=== PATIENT | female | born 2005 | race Hispanic/Latino ===

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

== ENCOUNTER 2024-07-19 13:57 | Emergency (ER) | payer OTHER, SELFPAY ==
[2024-07-19 14:51] VITALS: BP 92/62; PULSE 105; RESP 16; TEMP 36.4; O2SAT 97
--- NOTE | 2024-07-19 17:26 | ED_ITS ---
HPI - General Adult General Chief complaint: Unspecified <Becca ValdezEthan Lainez APRN - Last Filed: 07/19/24 17:28> Stated complaint: bright red blood in stool x 2 days <Beccajannie Lainez APRN - Last Filed: 07/19/24 17:28> Time Seen by Provider: 07/19/24 16:30 <Beccajannie Lainez APRN - Last Filed: 07/19/24 17:28> Focused HPI: Patient is a 19-year-old female who presents to the ER with concerns of blood in her urine. She reports the bleeding started approximately 2-3 days ago. Patient reports she just started her menstrual period today. She denies any abdominal pain, and fevers, back pain, or other signs/symptoms of illness or infection. Patient denies any medical history relevant this ER visit. GENERAL: Well-appearing, well-nourished, and in no acute distress. HEAD: Normocephalic, atraumatic. CHEST: Clear to auscultation. ?No respiratory distress. HEART: Regular rate and rhythm.? NEURO: ?Alert and oriented x3. Patient screened in triage and initial orders placed.? ?Additional care and disposition to be based upon?diagnostic testing and treatment. <Beccajannie Lainez APRN - Last Filed: 07/19/24 17:28> Focused HPI: Patient is a 19-year-old female who presents to the ER with concerns of blood in her urine. She reports the bleeding started approximately 2-3 days ago. Patient reports she just started her menstrual period today. She denies any abdominal pain, and fevers, back pain, or other signs/symptoms of illness or infection. Patient denies any medical history relevant this ER visit. GENERAL: Well-appearing, well-nourished, and in no acute distress. HEAD: Normocephalic, atraumatic. CHEST: Clear to auscultation. ?No respiratory distress. HEART: Regular rate and rhythm.? NEURO: ?Alert and oriented x3. Patient screened in triage and initial orders placed.? ?Additional care and disposition to be based upon?diagnostic testing and treatment. <Marah Gallagher PA-C - Last Filed: 07/19/24 19:53> Source: patient <Marah Gallagher PA-C - Last Filed: 07/19/24 19:53> Mode of arrival: ambulatory <Marah Gallagher PA-C - Last Filed: 07/19/24 19:53> Limitations: no limitations <Marah Gallagher PA-C - Last Filed: 07/19/24 19:53> History of Present Illness HPI narrative: Agree with above HPI. States bleeding may be coming from her rectum. Reports bright red blood with wiping and coming out after the bowel movement. Denies blood mixed in with the stool. States stool has been hard. Does have history of hemorrhoids. Denies pain with bowel movements. Denies abdominal pain, dizziness, lightheadedness. <Marah Gallagher PA-C - Last Filed: 07/19/24 19:53> Related Data Home medications: Home Medications ?Medication ?Instructions ?Recorded ?Confirmed ?Last Taken ?Type sertraline 25 mg tablet 25 mg PO DAILY 12/10/21 03/21/23 03/20/23 History <Becca Lainez APRN - Last Filed: 07/19/24 17:28> Allergies/adverse reactions: Allergies Allergy/AdvReac Type Severity Reaction Status Date / Time No Known Allergies Allergy Verified 03/21/23 12:03 <Becca Lainez APRN - Last Filed: 07/19/24 17:28> Review of Systems 2 Review of Systems: All systems reviewed & are unremarkable except as noted in HPI. <Marah Gallagher PA-C - Last Filed: 07/19/24 19:53> All systems reviewed & are unremarkable except as noted in HPI and below < Marah Gallagher PA-C - Last Filed: 07/19/24 19:53> PMFSH Past Medical History Medical History: Medical History Dysphagia Decreased appetite Underweight Chronic nausea Hematochezia BINU (iron deficiency anemia) Anemia <Becca Lainez APRN - Last Filed: 07/19/24 17:28> Surgical History Surgical History: Surgical History No pertinent past surgical history <Becca Lainez APRN - Last Filed: 07/19/24 17:28> Social History Social History: Social History Smoking status: Never smoker Alcohol intake: current Substance use: never Substance use type: does not use Living arrangements: with family Gender identity (if verbalized by the patient): Female Spiritual care concerns: No <Becca Lainez APRN - Last Filed: 07/19/24 17:28> Exam 2 Narrative: GENERAL: Well appearing, thin with BMI of 17.2, non-toxic, in no acute distress. HEAD: Normocephalic, atraumatic. RESPIRATORY: Airway patent, respirations nonlabored. Clear to auscultation bilaterally, no rales, rhonchi, wheezing. CARDIOVASCULAR: Regular rate and rhythm without murmurs, rubs, or gallops. ABDOMINAL: Soft, no tenderness throughout abdomen, nondistended. Normoactive BS. MUSCULOSKELETAL: Moves all extremities. No gross deformities. SKIN: Warm, dry, normal color. NEURO: A&O X3. Speech clear. PSYCHIATRIC: Appropriate mood and affect. Normal interaction. <Marah Gallagher PA-C - Last Filed: 07/19/24 19:53> Course Vital Signs Vital signs: Vital Signs Temperature 97.6 F 07/19/24 14:51 Pulse Rate 105 H 07/19/24 14:51 Respiratory Rate 16 07/19/24 14:51 Blood Pressure 92/62 L 07/19/24 14:51 Pulse Oximetry 97 07/19/24 14:51 Temperature 97.5 F L 07/19/24 18:56 Pulse Rate 87 07/19/24 18:56 Respiratory Rate 20 07/19/24 18:56 Blood Pressure 100/65 07/19/24 18:56 Pulse Oximetry 99 07/19/24 18:56 <Becca Lainez APRN - Last Filed: 07/19/24 17:28> Vital Signs Temperature 97.6 F 07/19/24 14:51 Pulse Rate 105 H 07/19/24 14:51 Respiratory Rate 16 07/19/24 14:51 Blood Pressure 92/62 L 07/19/24 14:51 Pulse Oximetry 97 07/19/24 14:51 Temperature 97.5 F L 07/19/24 18:56 Pulse Rate 87 07/19/24 18:56 Respiratory Rate 20 07/19/24 18:56 Blood Pressure 100/65 07/19/24 18:56 Pulse Oximetry 99 07/19/24 18:56 <Marah Gallagher PA-C - Last Filed: 07/19/24 19:53> Medical Decision Making MDM Narrative Medical decision making narrative: Patient presented to ED with possible rectal bleeding. Does note that she is currently on her menstrual cycle. Was slightly tachycardic upon initial arrival to the ED, this was resolved by the time of my evaluation. Otherwise in no acute distress. Denying any pain associated bowel movements or abdominal pain. No tenderness on exam. Cbc without leukocytosis. H and H is stable at 11.5. No recent records to compare to. No evidence of hemodynamic instability. Remainder laboratory studies are otherwise unremarkable. is negative. UA with trace amount of blood. No signs of infection. Patient is currently on her menstrual cycle. Bleeding seems most consistent with internal hemorrhoids. Denies any pain. Reports blood occurs after bowel movement and with wiping and is not mixed in with the stool. Was recently constipated prior to when the bleeding began. Does note that stools have been hard and firm. She does note history of hemorrhoids. Offered to perform rectal exam, however patient politely declined. I also discussed obtaining CT imaging of abdomen, however patient declined. She is not having any focal tenderness on exam. Discussed management of constipation, stool softeners, hemorrhoid management. Will refer to GI for further evaluation. Patient is in agreement this plan. Feels she is otherwise safe for discharge home. Discussed strict return precautions. She agrees with plan. Discharged in stable condition. Vital signs stable at time of D/C. < ANGELES Ernandez Last Filed: 07/19/24 19:53> Medical Records Medical records reviewed: Yes I reviewed the external patient's medical records. <Marah Gallagher PA-C - Last Filed: 07/19/24 19:53> Vital Signs Vital Signs: Vital Signs Temperature 97.6 F 07/19/24 14:51 Pulse Rate 105 H 07/19/24 14:51 Respiratory Rate 16 07/19/24 14:51 Blood Pressure 92/62 L 07/19/24 14:51 Pulse Oximetry 97 07/19/24 14:51 Temperature 97.5 F L 07/19/24 18:56 Pulse Rate 87 07/19/24 18:56 Respiratory Rate 20 07/19/24 18:56 Blood Pressure 100/65 07/19/24 18:56 Pulse Oximetry 99 07/19/24 18:56 <Becca Lainez, [employer] - Last Filed: 07/19/24 17:28> Vital Signs Temperature 97.6 F 07/19/24 14:51 Pulse Rate 105 H 07/19/24 14:51 Respiratory Rate 16 07/19/24 14:51 Blood Pressure 92/62 L 07/19/24 14:51 Pulse Oximetry 97 07/19/24 14:51 Temperature 97.5 F L 07/19/24 18:56 Pulse Rate 87 07/19/24 18:56 Respiratory Rate 20 07/19/24 18:56 Blood Pressure 100/65 07/19/24 18:56 Pulse Oximetry 99 07/19/24 18:56 <Marah Gallagher PA-C - Last Filed: 07/19/24 19:53> Lab Data Lab results reviewed: Yes I reviewed the patient's lab results. <Marah Gallagher PA-C - Last Filed: 07/19/24 19:53> Result diagrams: 07/19/24 17:25 07/19/24 17:25 <Becca Lainez APRN - Last Filed: 07/19/24 17:28> Labs: Lab Results 07/19/24 07/19/24 07/19/24 Range/Units 17:25 17:44 17:46 WBC 7.2 (4.5-10.0) K/mm3 RBC 4.12 L (4.2-5.4) M/mm3 Hgb 11.5 L (12.0-15.0) g/dL Hct 36.2 L (37.0-47.0) % MCV 87.9 (80-100) fl MCH 27.9 (26-34) pg MCHC 31.8 L (32-36) g/dl RDW 14.6 H (11.5-14.5) % Plt Count 212 (150-375) k/mm3 MPV 11.3 H (7.4-10.4) fl Immature Gran % (Auto) 0.1 (0-0.5) % Neut % (Auto) 70.6 (45.5-73.1) % Lymph % (Auto) 22.6 (18.3-44.2) % Keith % (Auto) 5.5 (2.6-8.5) % Eos % (Auto) 0.8 (0-4.4) % Baso % (Auto) 0.4 (0.2-1.2) % Lymph # (Auto) 1.63 (0.9-3.2) K/mm3 Keith # (Auto) 0.4 (0.1-0.6) K/mm3 Eos # (Auto) 0.1 (0-0.3) K/mm3 Baso # (Auto) 0.0 (0.0-0.1) K/mm3 Abs Immat Gran (auto) 0.01 (0.00-0.031) K/mm3 Absolute Neuts (auto) 5.1 (1.3-6.7) K/mm3 Absolute Nucleated RBC 0.000 (0.0-0.012) K/mm3 Nucleated RBC % 0.0 (0.0-0.2) % Sodium 138 (137-145) mmol/L Potassium 4.0 (3.4-5.0) mmol/L Chloride 106 (98-107) mmol/L Carbon Dioxide 20 L (22-30) mmol/L Anion Gap 12 (4-12) mmol/L BUN 9 (7-17) mg/dL Creatinine 0.72 (0.7-1.0) mg/dL Estim Creat Clear Calc 75 ml/min Estimated GFR > 60 (59 - ) Glucose 96 (65-110) mg/dL Calcium 9.0 (8.4-10.2) mg/dL Total Bilirubin 0.3 (0.2-1.3) mg/dL AST 21 (14-36) U/L ALT 15 (6-35) U/L Alkaline Phosphatase 80 (38-126) U/L Total Protein 8.0 (6.3-8.2) g/dL Albumin 4.6 (3.5-5.1) g/dL Beta HCG, Quant < 2.39 mIU/ML Urine Color Yellow (Yellow) Urine Appearance Clear (Clear) Urine pH 6.5 (5.0-9.0) Ur Specific [place] 1.015 (1.001-1.035) Urine Protein Negative (Negative) mg/dL Urine Glucose (UA) Negative (Negative) mg/dL Urine Ketones Negative (Negative) mg/dL Ur Blood (Man) 2+ H (Negative) Urine Nitrate Negative (Negative) Urine Bilirubin Negative (Negative) Urine Urobilinogen 0.2 (<2.0) mg/dL Leukocyte Esterase Rfl Negative (Negative) ANNE/UL Urine RBC 11-20 H (0-2) /hpf Urine WBC 0-5 (0-3) /hpf Ur Squamous Epith Cells None seen (Few) /hpf Urine Bacteria None seen /hpf Urine Casts 0-2 POC Urine HCG, Qual Negative (Negative) <Becca Lainez, [employer] - Last Filed: 07/19/24 17:28> Lab Results 07/19/24 07/19/24 07/19/24 Range/Units 17:25 17:44 17:46 WBC 7.2 (4.5-10.0) K/mm3 RBC 4.12 L (4.2-5.4) M/mm3 Hgb 11.5 L (12.0-15.0) g/dL Hct 36.2 L (37.0-47.0) % MCV 87.9 (80-100) fl MCH 27.9 (26-34) pg MCHC 31.8 L (32-36) g/dl RDW 14.6 H (11.5-14.5) % Plt Count 212 (150-375) k/mm3 MPV 11.3 H (7.4-10.4) fl Immature Gran % (Auto) 0.1 (0-0.5) % Neut % (Auto) 70.6 (45.5-73.1) % Lymph % (Auto) 22.6 (18.3-44.2) % Keith % (Auto) 5.5 (2.6-8.5) % Eos % (Auto) 0.8 (0-4.4) % Baso % (Auto) 0.4 (0.2-1.2) % Lymph # (Auto) 1.63 (0.9-3.2) K/mm3 Keith # (Auto) 0.4 (0.1-0.6) K/mm3 Eos # (Auto) 0.1 (0-0.3) K/mm3 Baso # (Auto) 0.0 (0.0-0.1) K/mm3 Abs Immat Gran (auto) 0.01 (0.00-0.031) K/mm3 Absolute Neuts (auto) 5.1 (1.3-6.7) K/mm3 Absolute Nucleated RBC 0.000 (0.0-0.012) K/mm3 Nucleated RBC % 0.0 (0.0-0.2) % Sodium 138 (137-145) mmol/L Potassium 4.0 (3.4-5.0) mmol/L Chloride 106 (98-107) mmol/L Carbon Dioxide 20 L (22-30) mmol/L Anion Gap 12 (4-12) mmol/L BUN 9 (7-17) mg/dL Creatinine 0.72 (0.7-1.0) mg/dL Estim Creat Clear Calc 75 ml/min Estimated GFR > 60 (59 - ) Glucose 96 (65-110) mg/dL Calcium 9.0 (8.4-10.2) mg/dL Total Bilirubin 0.3 (0.2-1.3) mg/dL AST 21 (14-36) U/L ALT 15 (6-35) U/L Alkaline Phosphatase 80 (38-126) U/L Total Protein 8.0 (6.3-8.2) g/dL Albumin 4.6 (3.5-5.1) g/dL Beta HCG, Quant < 2.39 mIU/ML Urine Color Yellow (Yellow) Urine Appearance Clear (Clear) Urine pH 6.5 (5.0-9.0) Ur Specific [place] 1.015 (1.001-1.035) Urine Protein Negative (Negative) mg/dL Urine Glucose (UA) Negative (Negative) mg/dL Urine Ketones Negative (Negative) mg/dL Ur Blood (Man) 2+ H (Negative) Urine Nitrate Negative (Negative) Urine Bilirubin Negative (Negative) Urine Urobilinogen 0.2 (<2.0) mg/dL Leukocyte Esterase Rfl Negative (Negative) ANNE/UL Urine RBC 11-20 H (0-2) /hpf Urine WBC 0-5 (0-3) /hpf Ur Squamous Epith Cells None seen (Few) /hpf Urine Bacteria None seen /hpf Urine Casts 0-2 POC Urine HCG, Qual Negative (Negative) <Marah Gallagher PA-C - Last Filed: 07/19/24 19:53> Discharge Plan Discharge Clinical Impression: Bright red rectal bleeding <Becca Lainez APRN - Last Filed: 07/19/24 17:28> Patient Disposition: Home, Self-Care <Becca Lainez APRN - Last Filed: 07/19/24 17:28> Condition: Stable <Becca Lainez APRN - Last Filed: 07/19/24 17:28> Instructions: Antibiotic Form, Hemorrhoids (ED), Rectal Bleeding (ED) <Becca Lainez APRN - Last Filed: 07/19/24 17:28> Additional Instructions: It is possible your bleeding may be related to hemorrhoids. Recommend taking stool softener, MiraLax, Dulcolax as needed for constipation and to avoid hard/firm bowel movements. Stay well hydrated. Follow up with GI for further evaluation. Return to the ED if you experience worsening or severe bleeding, abdominal pain, unable to keep down food or drink, feeling dizzy or lightheaded, fevers, or any other symptoms of concern. <Becca Lainez APRN - Last Filed: 07/19/24 17:28> Patient Language: Uzbek <Becca Lainez APRN - Last Filed: 07/19/24 17:28> Prescriptions: No Action sertraline 25 mg tablet 25 mg PO DAILY ondansetron HCl 4 mg tablet 4 - 8 mg PO Q8H PRN (Reason: nausea and vomiting) Qty: 20 1RF omeprazole 20 mg capsule,delayed release(DR/EC) 20 mg PO DAILY Qty: 30 2RF <Becca Lainez APRN - Last Filed: 07/19/24 17:28> Follow-up/Referrals: Aayush Riggins MD [Physician] - (GI) Nirmal Bonds MD [Primary Care Provider] - <Becca Lainez APRN - Last Filed: 07/19/24 17:28> Time of Disposition: 19:02 <Becca Lainez APRN - Last Filed: 07/19/24 17:28> 19:02 <Marah Gallagher PA-C - Last Filed: 07/19/24 19:53>
[2024-07-19 17:31] LABS: Basophils Percent Auto 0.4 % (0.2-1.2); Eosinophils Absolute Auto 0.1 K/mm3 (0-0.3); Eosinophils Percent Auto 0.8 % (0-4.4); Hematocrit 36.2 % (37.0-47.0); Hemoglobin 11.5 g/dL (12.0-15.0); Immature Granulocyte Absolute 0.01 K/mm3 (0.00-0.031); Immature Granulocyte Percent A 0.1 % (0-0.5); Lymphocytes Absolute Auto 1.63 K/mm3 (0.9-3.2); Lymphocytes Percent Auto 22.6 % (18.3-44.2); Mean Corpuscular HGB Conc 31.8 g/dl (32-36); Mean Corpuscular Hemoglobin 27.9 pg (26-34); Mean Corpuscular Volume 87.9 fl (80-100); Mean Platelet Volume 11.3 fl (7.4-10.4); Monocytes Absolute Auto 0.4 K/mm3 (0.1-0.6); Monocytes Percent Auto 5.5 % (2.6-8.5); Neutrophils Absolute Auto 5.1 K/mm3 (1.3-6.7); Neutrophils Percent Auto 70.6 % (45.5-73.1); Platelet Count Result 212 k/mm3 (150-375); Red Blood Count 4.12 M/mm3 (4.2-5.4); Red Cell Distribution Width 14.6 % (11.5-14.5); White Blood Count 7.2 K/mm3 (4.5-10.0)
[2024-07-19 17:41] LABS: Alanine Aminotransferase 15 U/L (6-35); Albumin Level 4.6 g/dL (3.5-5.1); Alkaline Phosphatase 80 U/L (38-126); Anion Gap 12 mmol/L (4-12); Aspartate Amino Transferase 21 U/L (14-36); Bilirubin,Total 0.3 mg/dL (0.2-1.3); Blood Urea Nitrogen 9 mg/dL (7-17); Carbon Dioxide 20 mmol/L (22-30); Chloride 106 mmol/L (98-107); Estimated CRCL calculation 75 ml/min; Estimated Glomerular Filt Rate > 60; Glucose 96 mg/dL (65-110); Sodium 138 mmol/L (137-145)
[2024-07-19 17:47] LABS: BEDSIDEPREGUCG Negative (Negative)
[2024-07-19 17:57] LABS: Add Urine Microscopic? YES; Appearance Urine Clear (Clear); Bacteria Urine None Seen /hpf; Bilirubin Urine Negative (Negative); Blood Urine 2+ (Negative); Color Urine Yellow (Yellow); Glucose Urine UA Negative (Negative); Ketones Urine Negative (Negative); Leukocyte Esterase Ur Negative LEU/UL (Negative); Nitrate Urine Negative (Negative); Non Pathogenic Casts 0-2; Protein Urine Negative (Negative); Specific Grav Ur 1.015 (1.001-1.035); Squamous Epithelial Cell Urine None Seen /hpf (Few); Urobilinogen Urine 0.2 mg/dL (<2.0); WBC Urine 0-5 /hpf (0-3); pH Urine 6.5 (5.0-9.0)
[2024-07-19 17:57] LABS: Beta HCG Quantitative < 2.39 mIU/ML
[2024-07-19 18:56] VITALS: BP 100/65; PULSE 87; RESP 20; TEMP 36.4; O2SAT 99
== END 2024-07-19 19:33 | disposition home or self-care (01) ==
PROVIDERS: Registered Nurse; Emergency Provider Physician Assistant; PCP Pediatrics
DX: K62.5 Hemorrhage of anus and rectum (principal); D50.9 Iron deficiency anemia, unspecified
CPT/HCPCS: 36415; 80053; 81001; 81025; 84702; 85025; 99283

== ENCOUNTER 2024-07-26 15:55 | Emergency (ER) | payer OTHER, SELFPAY ==
--- NOTE | ~2024-07-26 | XR_ITS ---
EXAM: XR wrist LT min 3V DATE: 07/26/2024 16:25 HISTORY: fall yesterday . COMPARISON: None available. FINDINGS: Normal mineralization. Nondisplaced transverse fracture at the distal pole of the scaphoid . No lytic or blastic lesion. Joint spaces are maintained. No erosion or periosteal change. Soft tiss ues within normal limits. IMPRESSION: Nondisplaced scaphoid fracture. Reviewed, dictated and finalized at location K.
[2024-07-26 16:05] VITALS: BP 104/69; PULSE 80; RESP 20; TEMP 36.9; O2SAT 100
--- NOTE | 2024-07-26 16:34 | ED.UPPEXIN ---
HPI - Extremity Injury (Upper) General Chief Complaint: Extremity Injury, Upper Stated Complaint: left arm pain Time Seen by Provider: 07/26/24 16:20 Source: patient and RN notes reviewed Mode of arrival: ambulatory Limitations: no limitations History of Present Illness HPI narrative: Yesterday while in a [employer] group, patient fell backwards onto an outstretched hand injuring her left wrist. She has pain to the distal ulna. Denies numbness or tingling or hand. No injury to the elbow or shoulder. Currently rates her pain 10/10 and has been taking [id number] medication without relief. Related Data Home Medications ?Medication ?Instructions ?Recorded ?Confirmed ?Last Taken ?Type sertraline 25 mg tablet 25 mg PO DAILY 12/10/21 03/21/23 03/20/23 History Allergies Allergy/AdvReac Type Severity Reaction Status Date / Time No Known Allergies Allergy Verified 03/21/23 12:03 Review of Systems Review of Systems: CONSTITUTIONAL: Denies body aches, fever, chills, or sweats. EYES: Denies visual changes, redness, or discharge. ENT: Denies rhinorrhea, congestion, sore throat, or otalgia. CARDIOVASCULAR: Denies chest pain, palpitations, or edema. RESPIRATORY: Denies cough or dyspnea. GASTROINTESTINAL: Denies abdominal pain, nausea, vomiting, or diarrhea. GENITOURINARY: Denies dysuria or hematuria. SKIN: Denies rash, itching, or wounds. MUSCULOSKELETAL:+ left wrist injury NEUROLOGIC: Denies headache, numbness, tingling, or weakness. PSYCH: Denies depression or anxiety. [facility] Past Medical History Medical History Dysphagia Decreased appetite Underweight Chronic nausea Hematochezia BINU (iron deficiency anemia) Anemia Surgical History Surgical History No pertinent past surgical history Social History Social History Smoking status: Never smoker Alcohol intake: current Substance use: never Substance use type: does not use Living arrangements: with family Gender identity (if verbalized by the patient): Female Spiritual care concerns: No Comments At time of signature, I have reviewed and agree with nursing past medical, surgical, social and family history unless otherwise noted. Please see nursing chart for further information. There is no relevant family history pertinent to the presenting complaint Exam Narrative: GENERAL: Well-appearing, well-nourished, and in no acute distress. HEAD: Normocephalic, atraumatic. EYES: EOMI. No redness or drainage. Conjunctivae normal. ENT: Mucous membranes pink and moist. NECK: Normal AROM. CHEST: No respiratory distress. EXTREMITIES: Left wrist: Tenderness to the distal ulna, extending slightly to the carpals. No tenderness to the distal ulna. No edema, erythema, ecchymosis, or deformity noted. Distal sensation intact in all 5 fingers. Capillary refill normal. Radial pulse normal. Pain with PROM in all directions except supination. SKIN: Warm, dry, no rash. Capillary refill normal. Normal skin turgor. NEURO: No focal deficits. Alert and oriented x3. Gait steady. PSYCH: Normal affect. No signs of depression or anxiety. Course Course Level of Care: Express Care Visit Vital Signs Vital signs: Vital Signs Temperature 98.5 F 07/26/24 16:05 Pulse Rate 80 07/26/24 16:05 Respiratory Rate 20 07/26/24 16:05 Blood Pressure 104/69 07/26/24 16:05 Pulse Oximetry 100 07/26/24 16:05 Oxygen Delivery Room Air 07/26/24 16:05 Temperature 98.5 F 07/26/24 16:05 Pulse Rate 80 07/26/24 16:05 Respiratory Rate 20 07/26/24 16:05 Blood Pressure 104/69 07/26/24 16:05 Pulse Oximetry 100 07/26/24 16:05 Oxygen Delivery Room Air 07/26/24 16:05 Reviewed Procedures Orthopedic Splinting/Casting Injury #1: Splinting/Casting Date: 07/26/24 Splinting/Casting Time: 16:50 Side: left OCL: volar Pre-Procedure Neuro Vascular Exam: normal Post-Procedure Neuro Vascular Exam: normal Additional Comments: Placed by tech MDM - Extremity Injury (Upper) MDM Narrative Medical decision making narrative: X-ray shows scaphoid fracture. Patient placed in a volar splint and pt's own sling. Instructed to follow-up with orthopedics for further evaluation. Differential Diagnosis Differential diagnosis: Likely sprain and strain of wrist and fracture of wrist Imaging Data Radiologist's impression: ITS Impressions Wrist X-Ray 07/26/24 16:31 IMPRESSION: Nondisplaced scaphoid fracture. Critical Care Time Critical Care Time Critical Care Time: No Discharge Plan Discharge Clinical Impression: Closed fracture of scaphoid of left wrist Patient Disposition: Home, Self-Care Condition: Stable Instructions: Wrist Fracture in Adults (ED) Additional Instructions: Your x-ray shows fracture of your wrist. You have been placed in a temporary splint. Please keep this dry and intact until follow-up with orthopedics. Elevate and ice your wrist. Take Tylenol or ibuprofen for pain. Patient Language: Arabic Prescriptions: No Action sertraline 25 mg tablet 25 mg PO DAILY ondansetron HCl 4 mg tablet 4 - 8 mg PO Q8H PRN (Reason: nausea and vomiting) Qty: 20 1RF omeprazole 20 mg capsule,delayed release(DR/EC) 20 mg PO DAILY Qty: 30 2RF Follow-up/Referrals: Geoff Rocha MD [Physician] - Nirmal Bonds MD [Primary Care Provider] - Stand Alone Forms: Work/School Release IP Time of Disposition: 16:49
== END 2024-07-26 17:28 | disposition home or self-care (01) ==
PROVIDERS: Emergency Provider Nurse Practitioner; PCP Pediatrics
DX: S62.015A Nondisplaced fracture of distal pole of navicular [scaphoid] bone of left wrist, initial encounter for closed fracture (principal); W19.XXXA Unspecified fall, initial encounter
CPT/HCPCS: 29125; 73110; 99214; A4565; G0463

== ENCOUNTER 2025-02-08 18:06 | Emergency (ER) | payer MEDICAID, SELFPAY ==
--- NOTE | 2025-02-08 18:12 | ED.ABDPAIN ---
HPI - Abdominal Pain General Chief Complaint: Abdominal Pain Stated Complaint: fever on/off/sharp abd pain/nausea Time Seen by Provider: 02/08/25 18:12 Source: patient Mode of arrival: ambulatory Limitations: no limitations History of Present Illness HPI narrative: Sandra is a 19-year-old female patient presenting to the clinic today with complaints right upper quadrant/right lower quadrant abdominal pain for over 1 week, nausea, and low-grade fever. Highest fever was 100? F. Pain comes and goes-pain is sharp and is currently rating it a 8/10. Pain is not worse after eating. Does have associated nausea. Denies any vomiting or urinary symptoms. Last menstrual period was 2 weeks ago. Denies any concern for . Last bowel movement was yesterday and hard. History of constipation. Related Data Home Medications ?Medication ?Instructions ?Recorded ?Confirmed ?Last Taken ?Type sertraline 25 mg tablet 25 mg PO DAILY 12/10/21 08/25/24 03/20/23 History Allergies Allergy/AdvReac Type Severity Reaction Status Date / Time No Known Allergies Allergy Verified 02/08/25 18:21 [facility] Past Medical History Medical History Left wrist sprain Dysphagia Decreased appetite Underweight Chronic nausea Hematochezia BINU (iron deficiency anemia) Anemia Surgical History Surgical History No pertinent past surgical history Social History Social History Social History: occasional caffeine Smoking status: Never smoker Alcohol intake: current Substance use: never Substance use type: does not use Living arrangements: with family Gender identity (if verbalized by the patient): Female Spiritual care concerns: No Comments At the time of my signature, I reviewed and agree with the nursing past medical, surgical, social, and family history. There is no relevant family history pertinent to the patient complaint. Exam Narrative: General: Well-developed, well nourished, in no apparent distress. Head: Normocephalic, atraumatic. Cardio: Regular rate and rhythm, s1 and s2 normal, no murmur appreciated. Resp: Clear to auscultation bilaterally, no rhonchi, rales, wheezing or rubs. Abdomen: Soft, pliable, bowel sounds present in all quadrants, right upper quadrant and right lower quadrant tender to palpation, no organomegly, no CVAT tenderness. Course Course Emergency Course: Portions of this record may have been created with voice recognition software. Level of Care: Express Care Visit Vital Signs Vital signs: Vital Signs Temperature 36.9 C 02/08/25 18:15 Pulse Rate 77 02/08/25 18:15 Respiratory Rate 20 02/08/25 18:15 Blood Pressure 90/62 L 02/08/25 18:15 Pulse Oximetry 95 02/08/25 18:15 Oxygen Delivery Room Air 02/08/25 18:15 Temperature 36.9 C 02/08/25 18:15 Pulse Rate 77 02/08/25 18:15 Respiratory Rate 20 02/08/25 18:15 Blood Pressure 90/62 L 02/08/25 18:15 Pulse Oximetry 95 02/08/25 18:15 Oxygen Delivery Room Air 02/08/25 18:15 Vital signs reviewed Transfer Transfered to: [facility] Transportation: Other (Private car) Transfer rationale: Higher level of care- Right sided abdomen pain/nausea Accepting physician: [facility] Transfer comments: Private car. MDM - Abdominal Pain MDM Narrative Medical decision making narrative: At the time of visit patient is resting comfortably on the exam table. Patient appears to be nontoxic. Complaints right upper quadrant/right lower quadrant abdominal pain for over 1 week, nausea, and low-grade fever. Highest fever was 100? F. Pain comes and goes-pain is sharp and is currently rating it a 8/10. Pain is not worse after eating. Does have associated nausea. Denies any vomiting or urinary symptoms. Last menstrual period was 2 weeks ago. Denies any concern for . Last bowel movement was yesterday and hard. History of constipation. On exam patient has right upper quadrant and right lower quadrant abdominal tenderness. Abdomen is soft and pliable, bowel sounds are present all 4 quadrants, no organomegaly, no CVAT tenderness. Rating pain 8/10 currently. Plan: Recommend transfer to the emergency room for further evaluation to rule out acute cholecystitis verses appendicitis. Patient agrees and would like to be transfer to [facility] the emergency room. Contacted Meche-physician's human services assistant at [facility] ER report was given for continuity care and she accepts patient for transfer. Patient to go by private car. Differential Diagnosis Differential diagnosis: Likely abdominal pain, acute appendicitis, constipation, diverticulitis, endometriosis, gastroenteritis, pancreatitis and small bowel obstruction Discharge Plan Discharge Clinical Impression: Right sided abdominal pain, Nausea Patient Disposition: Acute Care Hospital Condition: Stable Patient Language: Senegalese Prescriptions: No Action sertraline 25 mg tablet 25 mg PO DAILY Follow-up/Referrals: Nirmal Bonds MD [Primary Care Provider, Pediatrics] Time of Disposition: 18:25 Quality NIHSS Nursing Documentation ED NIHSS nursing documentation: reviewed/agree
[2025-02-08 18:15] VITALS: BP 90/62; PULSE 77; RESP 20; TEMP 36.9; O2SAT 95
== END 2025-02-08 18:32 | disposition short-term general hospital (02) ==
PROVIDERS: Emergency Provider Nurse Practitioner Family; PCP Pediatrics
DX: R10.10 Upper abdominal pain, unspecified (principal); R11.0 Nausea
CPT/HCPCS: 99212; G0463

== ENCOUNTER 2025-02-08 18:58 | Emergency (ER) | payer MEDICAID, SELFPAY ==
--- NOTE | ~2025-02-08 | CT_ITS ---
EXAMINATION: CT abdomen pelvis w con DATE: 02/08/2025 21:22 INDICATION: Abdominal pain TECHNIQUE: Computed tomography (CT) of the abdomen and pelvis was performed with 100 mL Omnipaque-350 intravenous contrast. Automated exposure control and iterative reconstruction technique were employed. The dose-length product was 194.86 mGy-cm. COMPARISON: None FINDINGS: Lung bases are clear. Pectus excavatum with the sternum exerting mass effect upon the anterior wall of the normal sized heart. No pericardial or pleural effusion. Liver, gallbladder, spleen, pancreas, bilateral adrenal glands and kidneys are normal. Bladder is normal. There is asymmetric mild thickening and decreased enhancement on the anterior wall of the anteverted uterus which could be related to small uterine fibroid or adenomyosis. 2.6 cm peripherally enhancing corpus luteum cyst at the left ovary. Right adnexa is unremarkable. Small amount of likely physiologic free fluid in the cul-de-sac. Bowels including the appendix are normal. No pathologically enlarged abdominal or pelvic lymphadenopathy. IMPRESSION: 1. 2.6 cm corpus luteum cyst at the left ovary and small amount of likely physiologic free fluid in the cul-de-sac. No other acute intra-abdominal/pelvic process. 2. Asymmetric thickening and subtle decreased enhancement of the anterior wall of the uterus which could be due to small fibroids or adenomyosis. Reviewed, dictated and finalized at location A. IMPRESSION: 1. 2.6 cm corpus luteum cyst at the left ovary and small amount of likely physi ologic free fluid in the cul-de-sac. No other acute intra-abdominal/pelvic proc ess. 2. Asymmetric thickening and subtle decreased enhancement of the anterior wall of the uterus which could be due to small fibroids or adenomyosis.
[2025-02-08 19:24] VITALS: BP 97/63; PULSE 76; RESP 20; TEMP 36.8; O2SAT 98
[2025-02-08 20:07] VITALS: BP 100/70; PULSE 73; RESP 18; TEMP 36.4; O2SAT 100
--- NOTE | 2025-02-08 20:11 | ED.GENADULT ---
HPI - General Adult General Chief complaint: Abdominal Pain Stated complaint: RUQ pain x 1 week. Nausea Time Seen by Provider: 02/08/25 20:03 History of Present Illness HPI narrative: Patient is a 19-year-old female who presents emergency department chief complaint of right-sided abdominal pain. Patient reports having discomfort for the last 7-10 days reports that she has had some fever and chills reports the pain goes from the right upper quadrant to the umbilicus the patient reports no diarrhea reports no urinary symptoms patient reports no prior surgical history Related Data Home Medications ?Medication ?Instructions ?Recorded ?Confirmed ?Last Taken ?Type sertraline 25 mg tablet 25 mg PO DAILY 12/10/21 08/25/24 03/20/23 History Allergies Allergy/AdvReac Type Severity Reaction Status Date / Time No Known Allergies Allergy Verified 02/08/25 19:24 Review of Systems Review of Systems: A 10 system review of systems was completed on the patient and is negative except for what is stated in the HPI. Nursing and ancillary documentation was reviewed. [facility] Past Medical History Medical History Left wrist sprain Dysphagia Decreased appetite Underweight Chronic nausea Hematochezia BINU (iron deficiency anemia) Anemia Surgical History Surgical History No pertinent past surgical history Social History Social History Social History: occasional caffeine Smoking status: Never smoker Alcohol intake: current Substance use: never Substance use type: does not use Living arrangements: with family Gender identity (if verbalized by the patient): Female Spiritual care concerns: No Exam Narrative: GENERAL: Well-appearing, well-nourished, and in no acute distress. HEAD: Normocephalic, atraumatic. EYES: PERRLA and EOMI. ENT: Nares clear, no rhinorrhea or epistaxis. Mucous membranes moist. NECK: Supple. CHEST: Clear to auscultation. No respiratory distress. HEART: Regular rate and rhythm. No murmur heard. Normal peripheral pulses. ABDOMEN: Soft, tenderness palpation epigastric and right upper quadrant, nondistended, normal active bowel sounds. EXTREMITIES: Normal range of motion. No edema. SKIN: Warm, dry, no rash. NEURO: No focal deficits. Alert and oriented x3. PSYCH: Normal mood and affect. Course Vital Signs Vital signs: Vital Signs Temperature 36.8 C 02/08/25 19:24 Pulse Rate 76 02/08/25 19:24 Respiratory Rate 20 02/08/25 19:24 Blood Pressure 97/63 L 02/08/25 19:24 Pulse Oximetry 98 02/08/25 19:24 Oxygen Delivery Room Air 02/08/25 19:24 Temperature 36.4 C 02/08/25 20:07 Pulse Rate 73 02/08/25 20:07 Respiratory Rate 18 02/08/25 20:07 Blood Pressure 100/70 02/08/25 20:07 Pulse Oximetry 100 02/08/25 20:07 Oxygen Delivery Room Air 02/08/25 19:24 Medical Decision Making MDM Narrative Medical decision making narrative: Differential diagnosis includes intra-abdominal infection diverticulitis colitis, cholecystitis, pancreatitis Laboratories studies were obtained on the patient showed a CBC with white count of 4.9 hemoglobin was 11.0 electrolytes showed no acute abnormality liver enzymes were within normal limits lipase was normal urinalysis showed no evidence UTI test was negative CT scan showed 1. 2.6 cm corpus luteum cyst at the left ovary and small amount of likely physiologic free fluid in the cul-de-sac. No other acute intra-abdominal/pelvic process. 2. Asymmetric thickening and subtle decreased enhancement of the anterior wall of the uterus which could be due to small fibroids or adenomyosis. Vital Signs Vital Signs: Vital Signs Temperature 36.8 C 02/08/25 19:24 Pulse Rate 76 02/08/25 19:24 Respiratory Rate 20 02/08/25 19:24 Blood Pressure 97/63 L 02/08/25 19:24 Pulse Oximetry 98 02/08/25 19:24 Oxygen Delivery Room Air 02/08/25 19:24 Temperature 36.4 C 02/08/25 20:07 Pulse Rate 73 02/08/25 20:07 Respiratory Rate 18 02/08/25 20:07 Blood Pressure 100/70 02/08/25 20:07 Pulse Oximetry 100 02/08/25 20:07 Oxygen Delivery Room Air 02/08/25 19:24 Lab Data 02/08/25 20:15 02/08/25 20:15 Labs: Lab Results 02/08/25 02/08/25 Range/Units 20:15 20:25 WBC 4.9 (4.5-10.0) K/mm3 RBC 4.04 L (4.2-5.4) M/mm3 Hgb 11.0 L (12.0-15.0) g/dL Hct 34.5 L (37.0-47.0) % MCV 85.4 (80-100) fl MCH 27.2 (26-34) pg MCHC 31.9 L (32-36) g/dl RDW 15.1 H (11.5-14.5) % Plt Count 144 L (150-375) k/mm3 MPV 11.4 H (7.4-10.4) fl Immature Gran % (Auto) 0.4 (0-0.5) % Neut % (Auto) 54.1 (45.5-73.1) % Lymph % (Auto) 34.6 (18.3-44.2) % Johnston % (Auto) 9.3 H (2.6-8.5) % Eos % (Auto) 1.0 (0-4.4) % Baso % (Auto) 0.6 (0.2-1.2) % Lymph # (Auto) 1.68 (0.9-3.2) K/mm3 Johnston # (Auto) 0.5 (0.1-0.6) K/mm3 Eos # (Auto) 0.1 (0-0.3) K/mm3 Baso # (Auto) 0.0 (0.0-0.1) K/mm3 Abs Immat Gran (auto) 0.02 (0.00-0.031) K/mm3 Absolute Neuts (auto) 2.6 (1.3-6.7) K/mm3 Absolute Nucleated RBC 0.000 (0.0-0.012) K/mm3 Nucleated RBC % 0.0 (0.0-0.2) % Sodium 135 L (137-145) mmol/L Potassium 4.0 (3.4-5.0) mmol/L Chloride 104 (98-107) mmol/L Carbon Dioxide 24 (22-30) mmol/L Anion Gap 7 (4-12) mmol/L BUN 11 (7-17) mg/dL Creatinine 0.63 L (0.7-1.0) mg/dL Estim Creat Clear Calc 88 ml/min Estimated GFR > 60 (59 - ) Glucose 86 (65-110) mg/dL Calcium 9.1 (8.4-10.2) mg/dL Total Bilirubin 0.1 L (0.2-1.3) mg/dL AST 21 (14-36) U/L ALT 14 (6-35) U/L Alkaline Phosphatase 78 (38-126) U/L Total Protein 7.3 (6.3-8.2) g/dL Albumin 4.2 (3.5-5.1) g/dL Lipase 80 (23-300) U/L Urine Color Yellow (Yellow) Urine Appearance Clear (Clear) Urine pH 7.5 (5.0-9.0) Ur Specific Clifton 1.013 (1.001-1.035) Urine Protein Negative (Negative) mg/dL Urine Glucose (UA) Negative (Negative) mg/dL Urine Ketones Negative (Negative) mg/dL Ur Blood (Man) Negative (Negative) Urine Nitrate Negative (Negative) Urine Bilirubin Negative (Negative) Urine Urobilinogen 1.0 (<2.0) mg/dL Add Ur Microanalysis Reviewed Leukocyte Esterase Rfl Trace H (Negative) ANNE/UL Urine RBC 6-10 H (0-2) /hpf Urine WBC 0-5 (0-3) /hpf Ur Squamous Epith Cells Few (Few) /hpf Urine Bacteria 1+ H /hpf Urine Casts 0-2 POC Urine HCG, Qual Negative (Negative) Discharge Plan Discharge Clinical Impression: Abdominal pain, Ovarian cyst Patient Disposition: Home Condition: Stable Instructions: Antibiotic Form, Ovarian Cyst (ED), Abdominal Pain (ED) Patient Language: Burmese Prescriptions: No Action sertraline 25 mg tablet 25 mg PO DAILY Follow-up/Referrals: Nirmal Bonds MD [Primary Care Provider, Pediatrics] Time of Disposition: 22:08
[2025-02-08] MEDS: DICYCLOMINE HCL INJ 20 MG/2 ML VIAL IM (20:20)
[2025-02-08] MEDS: SODIUM CHLORIDE 0.9% IV 1,000 ML 999 ML IV CONT (20:20)
[2025-02-08] MEDS: ONDANSETRON INJ 4 MG/2 ML VIAL IV PUSH (20:20)
[2025-02-08 20:22] LABS: Hematocrit 34.5 % (37.0-47.0); Hemoglobin 11.0 g/dL (12.0-15.0); Immature Granulocyte Percent A 0.4 % (0-0.5); Lymphocytes Absolute Auto 1.68 K/mm3 (0.9-3.2); Mean Corpuscular HGB Conc 31.9 g/dl (32-36); Mean Corpuscular Hemoglobin 27.2 pg (26-34); Mean Corpuscular Volume 85.4 fl (80-100); Nucleated Red Blood Cells Absolute Auto 0.000 K/mm3 (0.0-0.012); Nucleated Red Blood Cells Perc 0.0 % (0.0-0.2); Platelet Count Result 144 k/mm3 (150-375); Red Blood Count 4.04 M/mm3 (4.2-5.4); White Blood Count 4.9 K/mm3 (4.5-10.0)
[2025-02-08 20:27] LABS: BEDSIDEPREGUCG Negative (Negative)
[2025-02-08 20:34] LABS: Add Urine Microscopic? YES; Appearance Urine Clear (Clear); Glucose Urine UA Negative (Negative); Leukocyte Esterase Ur Trace LEU/UL (Negative); Need Manual Microscopic Reviewed; Nitrate Urine Negative (Negative); Non Pathogenic Casts 0-2; Specific Grav Ur 1.013 (1.001-1.035)
[2025-02-08 20:35] LABS: Alanine Aminotransferase 14 U/L (6-35); Albumin Level 4.2 g/dL (3.5-5.1); Alkaline Phosphatase 78 U/L (38-126); Anion Gap 7 mmol/L (4-12); Aspartate Amino Transferase 21 U/L (14-36); Bilirubin,Total 0.1 mg/dL (0.2-1.3); Blood Urea Nitrogen 11 mg/dL (7-17); Calcium 9.1 mg/dL (8.4-10.2); Carbon Dioxide 24 mmol/L (22-30); Chloride 104 mmol/L (98-107); Estimated CRCL calculation 88 ml/min; Estimated Glomerular Filt Rate > 60; Glucose 86 mg/dL (65-110); Lipase 80 U/L (23-300); Potassium 4.0 mmol/L (3.4-5.0); Sodium 135 mmol/L (137-145); Total Protein 7.3 g/dL (6.3-8.2)
[2025-02-08 22:45] VITALS: BP 100/73; PULSE 80; RESP 16; O2SAT 100
== END 2025-02-08 22:47 | disposition home or self-care (01) ==
PROVIDERS: Emergency Provider Emergency Medicine; PCP Pediatrics
DX: N83.12 Corpus luteum cyst of left ovary (principal); D50.9 Iron deficiency anemia, unspecified; R93.89 Abnormal findings on diagnostic imaging of other specified body structures
CPT/HCPCS: 36415; 74177; 80053; 81001; 81025; 83690; 85025; 96361; 96372; 96374; 99284; J0500; J2405; J7030; Q9967

== ENCOUNTER 2025-03-21 15:49 | Emergency (ER) | payer MEDICAID, SELFPAY ==
[2025-03-21 15:51] VITALS: BP 106/83; PULSE 68; RESP 18; TEMP 36.6; O2SAT 100
--- NOTE | 2025-03-21 17:05 | PC.NURSE ---
Pt states she is feeling better and is going to leave, pt and father ambulated to exit using steady gait NAD noted
== END 2025-03-21 19:24 | disposition left against medical advice (07) ==
LOC: ANHED 17:50
PROVIDERS: PCP Pediatrics
DX: R10.9 Unspecified abdominal pain (principal)
CPT/HCPCS: 99199

== ENCOUNTER 2025-03-22 14:45 | Emergency (ER) | payer MEDICAID, SELFPAY ==
--- NOTE | ~2025-03-22 | US_ITS ---
EXAMINATION: Ultrasound pelvis, complete: DATE: 03/22/2025 INDICATION: 19-year-old female with bilateral lower abdominal pain. Last menstrual period on 01/17/2025. Nulliparous. TECHNIQUE: Patient Transvaginal ultrasound. Transabdominal pelvic ultrasound with Doppler were obtained. COMPARISON: CT abdomen and pelvis dated 02/08/2025 FINDINGS: The urinary bladder is not optimally distended. Normal size uterus measuring the length of 7 cm indirect uptake finding seen. Endometrium measures 14 mm in thickness. Ovaries measure 3 to 5 cc in volume. Minimal free fluid in the cul-de-sac. Color flow is noted within the ovaries on both sides. IMPRESSION: 1. Limited examination due to refusal of transvaginal ultrasound and incompletely distended bladder. 2. Mild endometrial thickening. 3. No adnexal mass, free fluid or abnormal pelvic fluid collections. Reviewed, dictated and finalized at location T. SHAPER IMPRESSION: 1. Limited examination due to refusal of transvaginal ultrasound and incomplete ly distended bladder. 2. Mild endometrial thickening. 3. No adnexal mass, free fluid or abnormal pelvic fluid collections.
--- NOTE | ~2025-03-22 | CT_ITS ---
EXAMINATION: CT abdomen pelvis w con DATE: 03/22/2025 21:01 INDICATION: Abdominal pain. TECHNIQUE: Computed tomography (CT) of the abdomen and pelvis was performed 100 cc intravenous contrast. Automated exposure control and iterative reconstruction technique were employed. The dose-length product was 174.42 mGy-cm. COMPARISON: Ultrasound pelvis dated 03/22/2025. CT dated 02/08/2025. FINDINGS: No acute findings in bases. Pectus deformity of the chest wall. No focal lesions of the liver and spleen. Gallbladder, bile ducts, pancreas do not show acute findings. No evidence of small bowel obstruction. Moderate fecal impaction of the colon. Bulky uterus in the pelvis is mildly endometrial thickening consistent with CT findings. No evidence of adnexal mass or free fluid in the pelvis. IMPRESSION: 1. No acute findings in the upper abdomen and pelvis. Bulky uterus with endometrial thickening noted. 2. Moderate fecal impaction of the colon. Reviewed, dictated and finalized at location T. L [employer] IMPRESSION: 1. No acute findings in the upper abdomen and pelvis. Bulky uterus with endomet rial thickening noted. 2. Moderate fecal impaction of the colon.
[2025-03-22 15:04] VITALS: BP 106/56; PULSE 91; RESP 18; TEMP 36.6; O2SAT 99
[2025-03-22 17:12] VITALS: BP 103/69; PULSE 79; RESP 18; TEMP 36.8; O2SAT 100
[2025-03-22 17:27] LABS: BEDSIDEPREGUCG Negative (Negative)
[2025-03-22 17:48] LABS: Hematocrit 36.7 % (37.0-47.0); Hemoglobin 11.9 g/dL (12.0-15.0); Immature Granulocyte Percent A 0.2 % (0-0.5); Lymphocytes Absolute Auto 1.87 K/mm3 (0.9-3.2); Mean Corpuscular HGB Conc 32.4 g/dl (32-36); Mean Corpuscular Hemoglobin 28.0 pg (26-34); Mean Corpuscular Volume 86.4 fl (80-100); Nucleated Red Blood Cells Absolute Auto 0.000 K/mm3 (0.0-0.012); Nucleated Red Blood Cells Perc 0.0 % (0.0-0.2); Platelet Count Result 192 k/mm3 (150-375); Red Blood Count 4.25 M/mm3 (4.2-5.4); White Blood Count 6.4 K/mm3 (4.5-10.0)
[2025-03-22 17:55] LABS: Add Urine Microscopic? NO; Appearance Urine Clear (Clear); Glucose Urine UA Negative (Negative); Leukocyte Esterase Ur Negative LEU/UL (Negative); Nitrate Urine Negative (Negative); Specific Grav Ur 1.024 (1.001-1.035)
[2025-03-22 18:05] LABS: Alanine Aminotransferase 15 U/L (6-35); Albumin Level 4.6 g/dL (3.5-5.1); Alkaline Phosphatase 73 U/L (38-126); Anion Gap 11 mmol/L (4-12); Aspartate Amino Transferase 22 U/L (14-36); Bilirubin,Total 0.4 mg/dL (0.2-1.3); Blood Urea Nitrogen 12 mg/dL (7-17); Calcium 9.1 mg/dL (8.4-10.2); Carbon Dioxide 23 mmol/L (22-30); Chloride 105 mmol/L (98-107); Estimated CRCL calculation 87 ml/min; Estimated Glomerular Filt Rate > 60; Glucose 79 mg/dL (65-110); Lipase 89 U/L (23-300); Potassium 3.9 mmol/L (3.4-5.0); Sodium 139 mmol/L (137-145); Total Protein 8.0 g/dL (6.3-8.2)
--- NOTE | 2025-03-22 18:44 | ED_ITS ---
HPI - Abdominal Pain General Chief Complaint: Abdominal Pain Stated Complaint: abdominal pain-hx of ovarian cyst Time Seen by Provider: 03/22/25 17:14 History of Present Illness HPI narrative: Patient is a 19-year-old female who presents to the ER with bilateral lower quadrant abdominal pain. She reports she was here 1 week ago and diagnosed with an ovarian cyst. Patient reports the pain has worsened recently and now radiates to her lower back bilaterally. She reports initially she had some dark brown discharge associated with the pain but that has subsided. Patient reports she has not had a menstrual period since mid-January. She endorses nausea but denies vomiting. Patient also endorses dizziness. She reports she is not currently sexually active and has no concern for STDs. Patient reports her last bowel movement was yesterday normal for her. Related Data Home Medications ?Medication ?Instructions ?Recorded ?Confirmed ?Last Taken ?Type sertraline 25 mg tablet 25 mg PO DAILY 12/10/2108/0403/20/23 History Allergies Allergy/AdvReac Type Severity Reaction Status Date / Time No Known Allergies Allergy Verified 03/22/25 17:11 Review of Systems 2 Review of Systems: All systems reviewed & are unremarkable except as noted in HPI and below PMFSH Past Medical History Medical History Left wrist sprain Dysphagia Decreased appetite Underweight Chronic nausea Hematochezia BINU (iron deficiency anemia) Anemia Surgical History Surgical History No pertinent past surgical history Social History Social History Social History: occasional caffeine Smoking status: Never smoker Alcohol intake: current Substance use: never Substance use type: does not use Living arrangements: with family Gender identity (if verbalized by the patient): Female Spiritual care concerns: No Exam 2 Narrative: GENERAL: Well appearing, thin, non-toxic, in no acute distress. HEAD: Normocephalic, atraumatic. NECK: Supple. No adenopathy, no masses. RESPIRATORY: Airway patent, respirations nonlabored. Clear to auscultation bilaterally, no rales, rhonchi, wheezing. CARDIOVASCULAR: Regular rate and rhythm without murmurs, rubs, or gallops. Peripheral pulses 2+ and equal bilaterally. ABDOMINAL: Soft, right lower quadrant and left lower quadrant tenderness, nondistended, no hepatosplenomegaly. Normoactive BS. MUSCULOSKELETAL: Moves all extremities. Strength/ROM intact without gross deformities. SKIN: Warm, dry, normal color. No rashes. NEURO: A&O X3. Speech clear. Cranial nerves II-XII intact. No ataxic movements. PSYCHIATRIC: Appropriate mood and affect. Normal interaction. Course Vital Signs Vital signs: Vital Signs Temperature 36.6 C 03/22/25 15:04 Pulse Rate 91 03/22/25 15:04 Respiratory Rate 18 03/22/25 15:04 Blood Pressure 106/56 L 03/22/25 15:04 Pulse Oximetry 99 03/22/25 15:04 Temperature 36.8 C 03/22/25 17:12 Pulse Rate 79 03/22/25 17:12 Respiratory Rate 18 03/22/25 17:12 Blood Pressure 103/69 03/22/25 17:12 Pulse Oximetry 100 03/22/25 17:12 Oxygen Delivery Room Air 03/22/25 17:12 MDM - Abdominal Pain MDM Narrative Medical decision making narrative: Patient is a 19-year-old female who presents to the ER with bilateral lower quadrant abdominal pain. She reports she was here 1 week ago and diagnosed with an ovarian cyst. Patient reports the pain has worsened recently and now radiates to her lower back bilaterally. She reports initially she had some dark brown discharge associated with the pain but that has subsided. Patient reports she has not had a menstrual period since mid-January. She endorses nausea but denies vomiting. Patient also endorses dizziness. She reports she is not currently sexually active and has no concern for STDs. Patient reports her last bowel movement was yesterday normal for her. Labs Ordered: CBC, CMP, UA, lipase Imaging Ordered: Pelvic ultrasound, CT abdomen pelvis Medications Ordered: 1 L normal saline IV bolus, Toradol 15 mg IV Results: Pt's CT scan indicates No acute findings in bases. Pectus deformity of the chest wall. No focal lesions of the liver and spleen. Gallbladder, bile ducts, pancreas do not show acute findings. No evidence of small bowel obstruction. Moderate fecal impaction of the colon. Bulky uterus in the pelvis is mildly endometrial thickening consistent with CT findings. No evidence of adnexal mass or free fluid in the pelvis. Pt's US indicates . Limited examination due to refusal of transvaginal ultrasound and incompletely distended bladder. 2. Mild endometrial thickening. 3. No adnexal mass, free fluid or abnormal pelvic fluid collections. Diagnosis: constipation, abdominal pain Consults: OBGYN (outpatient) Patient Education/Shared MDM: Results of lab work and imaging shared with patient. She endorses mild improvement of symptoms following medication administration. Patient strongly advised to maintain hydration status upon discharge and follow-up with an OBGYN as soon as possible for further evaluation. She will be discharged home with a prescription for MiraLax. Strict return precautions provided. Patient verbalized understanding and is in agreement with plan. Vital signs stable at time of discharge. All questions answered. Differential Diagnosis Differential diagnosis: Likely abdominal pain, acute appendicitis, calculus of kidney, pancreatitis and small bowel obstruction Lab Data Attestation: I reviewed the patient's lab results. 03/22/25 17:41 03/22/25 17:40 Labs: Lab Results 03/22/25 03/22/25 03/22/25 Range/Units 17:25 17:40 17:41 WBC 6.4 (4.5-10.0) K/mm3 RBC 4.25 (4.2-5.4) M/mm3 Hgb 11.9 L (12.0-15.0) g/dL Hct 36.7 L (37.0-47.0) % MCV 86.4 (80-100) fl MCH 28.0 (26-34) pg MCHC 32.4 (32-36) g/dl RDW 15.2 H (11.5-14.5) % Plt Count 192 (150-375) k/mm3 MPV 11.7 H (7.4-10.4) fl Immature Gran % (Auto) 0.2 (0-0.5) % Neut % (Auto) 62.2 (45.5-73.1) % Lymph % (Auto) 29.4 (18.3-44.2) % [place] % (Auto) 6.5 (2.6-8.5) % Eos % (Auto) 1.1 (0-4.4) % Baso % (Auto) 0.6 (0.2-1.2) % Lymph # (Auto) 1.87 (0.9-3.2) K/mm3 [place] # (Auto) 0.4 (0.1-0.6) K/mm3 Eos # (Auto) 0.1 (0-0.3) K/mm3 Baso # (Auto) 0.0 (0.0-0.1) K/mm3 Abs Immat Gran (auto) 0.01 (0.00-0.031) K/mm3 Absolute Neuts (auto) 4.0 (1.3-6.7) K/mm3 Absolute Nucleated RBC 0.000 (0.0-0.012) K/mm3 Nucleated RBC % 0.0 (0.0-0.2) % Sodium 139 (137-145) mmol/L Potassium 3.9 (3.4-5.0) mmol/L Chloride 105 (98-107) mmol/L Carbon Dioxide 23 (22-30) mmol/L Anion Gap 11 (4-12) mmol/L BUN 12 (7-17) mg/dL Creatinine 0.65 L (0.7-1.0) mg/dL Estim Creat Clear Calc 87 ml/min Estimated GFR > 60 (59 - ) Glucose 79 (65-110) mg/dL Calcium 9.1 (8.4-10.2) mg/dL Total Bilirubin 0.4 (0.2-1.3) mg/dL AST 22 (14-36) U/L ALT 15 (6-35) U/L Alkaline Phosphatase 73 (38-126) U/L Total Protein 8.0 (6.3-8.2) g/dL Albumin 4.6 (3.5-5.1) g/dL Lipase 89 (23-300) U/L Urine Color Yellow (Yellow) Urine Appearance Clear (Clear) Urine pH 5.5 (5.0-9.0) Ur Specific [place] 1.024 (1.001-1.035) Urine Protein Negative (Negative) mg/dL Urine Glucose (UA) Negative (Negative) mg/dL Urine Ketones Trace H (Negative) mg/dL Ur Blood (Man) Negative (Negative) Urine Nitrate Negative (Negative) Urine Bilirubin Negative (Negative) Urine Urobilinogen 1.0 (<2.0) mg/dL Leukocyte Esterase Rfl Negative (Negative) ANNE/UL POC Urine HCG, Qual Negative (Negative) Imaging Data Attestation: I personally reviewed and interpreted this imaging study as follows: Radiologist's impression: ITS Impressions Pelvis Ultrasound 03/22/25 20:15 IMPRESSION: 1. Limited examination due to refusal of transvaginal ultrasound and incompletely distended bladder. 2. Mild endometrial thickening. 3. No adnexal mass, free fluid or abnormal pelvic fluid collections. Abdomen/Pelvis CT 03/22/25 21:03 IMPRESSION: 1. No acute findings in the upper abdomen and pelvis. Bulky uterus with endometrial thickening noted. 2. Moderate fecal impaction of the colon. Discharge Plan Discharge Clinical Impression: Constipation, Abdominal pain Patient Disposition: Home Condition: Stable Instructions: Antibiotic Form, Constipation (ED), Abdominal Pain (ED) Additional Instructions: Please return to the ER with any worsening symptoms. Follow-up with an OBGYN as soon as possible. Take all medications as prescribed, including regularly scheduled medications. You may take MiraLax as often as two times a day. Please remember to drink lots of water. Patient Language: Citizen Of [place] Prescriptions: New polyethylene glycol 3350 [Miralax] 17 gram/dose powder 17 g PO BID Qty: 238 0RF No Action sertraline 25 mg tablet 25 mg PO DAILY Follow-up/Referrals: Sarah Keller MD [Physician, [employer]] Ramin Wallis MD [Physician, [employer]] Nirmal Bonds MD [Primary Care Provider, Pediatrics] Phillip Ho MD [Physician, [employer]ICE] Stand Alone Forms: Work/School Release IP Time of Disposition: 22:41
[2025-03-22] MEDS: SODIUM CHLORIDE 0.9% IV 1,000 ML 999 ML IV CONT (20:29)
[2025-03-22] MEDS: KETOROLAC 15 MG/ML VIAL (*BKC) IV PUSH (20:30)
[2025-03-22 23:03] VITALS: BP 98/60; PULSE 90; RESP 14; O2SAT 100
== END 2025-03-22 23:04 | disposition home or self-care (01) ==
PROVIDERS: Emergency Provider Registered Nurse; PCP Pediatrics
DX: K59.00 Constipation, unspecified (principal); R10.30 Lower abdominal pain, unspecified
CPT/HCPCS: 36415; 74177; 76856; 80053; 81003; 81025; 83690; 85025; 96361; 96374; 99284; J1885; J7030; Q9967